=== PATIENT | female | born 1980 | race Caucasian/White ===

== ENCOUNTER 2016-12-10 17:32 | Emergency (ER) | payer MEDICARE ==
[~2016-12-10 17:32] MED LIST: ACETAMINOPHEN W1 TA6 PO; AMLOPIDINE; CARBAMAZEPINE400 MG; COUMADIN10 MG; FLEXERIL10 MG PO; GABAPENTIN600 MG; LABETALOL100 MG; LEXAPRO 10MG10 MG; LYRICA100 MG PO; LYRICA75 MG PO; NORVASC 10MG10 MG; OMNICEF PO; PERCOCET 650 MG1 TAB PO; PLAQUENIL; TOPAMAX25 MG PO; TRANDATE 100MG100 MG PO; [UNRECOGNIZED DRUG - REMARK]
[2016-12-10] MEDS ORDERED: LEXAPRO20 M1 PO (17:38)
[2016-12-10] MEDS ORDERED: COUMADIN5 M1 PO (17:39)
[2016-12-10] MEDS ORDERED: SUNMARK ENTERI325 MG PO (17:39)
[2016-12-10] MEDS ORDERED: TRAMADOL 50 MG TAB (17:40)
[2016-12-10] MEDS ORDERED: NORCO 325 MG-51 TA1 PO (17:40)
[2016-12-10] MEDS ORDERED: KLONOPIN 1MG1 MG (17:40)
[2016-12-10] MEDS ORDERED: TIZANIDINE HYDRO2 M1 (17:41)
[2016-12-10] MEDS ORDERED: FIORICET1 CAP (17:41)
[2016-12-10 21:40] VITALS: BP 123/64
== END 2016-12-10 21:40 | disposition home or self-care (01) ==
LOC: ED 17:32
DX: R42 Dizziness and giddiness (principal); R53.81 Other malaise; R53.1 Weakness; G43.909 Migraine, unspecified, not intractable, without status migrainosus; E86.0 Dehydration; R55 Syncope and collapse; I10 Essential (primary) hypertension; Z86.73 Personal history of transient ischemic attack (TIA), and cerebral infarction without residual deficits; Z91.81 History of falling; Z79.01 Long term (current) use of anticoagulants; Z79.82 Long term (current) use of aspirin; F17.210 Nicotine dependence, cigarettes, uncomplicated
CPT/HCPCS: J1885; J3360; J7030

== ENCOUNTER 2017-12-31 11:00 | Outpatient (RCR) | payer MEDICARE ==
[~2017-12-31 11:00] MED LIST changes: +COUMADIN5 M1 PO; +FIORICET1 CAP; +KLONOPIN 1MG1 MG; +LEXAPRO20 M1 PO; +NORCO 325 MG-51 TA1 PO; +SUNMARK ENTERI325 MG PO; +TIZANIDINE HYDRO2 M1; +TRAMADOL 50 MG TAB
== END 2017-12-31 11:30 | disposition home or self-care (01) ==
LOC: OT 11:00
DX: R53.1 Weakness (principal)

== ENCOUNTER 2017-12-31 11:30 | Outpatient (RCR) | payer MEDICARE | END 2017-12-31 12:00 | disposition home or self-care (01) | LOC: PT 11:30 | DX: G43.409 Hemiplegic migraine, not intractable, without status migrainosus (principal) | CPT/HCPCS: G8978-GP; G8979-GP ==

== ENCOUNTER → 2018-07-10 | Outpatient (CLI) | payer MEDICARE ==
[~2018-07-10] VITALS: Ht 165.1 cm; Wt 57.5 kg
[2018-07-10 12:39] VITALS: BP 140/90
[2018-07-10 14:20] VITALS: BP 131/87
== END ==
LOC: AMSURD 12:07
DX: R10.9 Unspecified abdominal pain (principal); K59.00 Constipation, unspecified

== ENCOUNTER 2018-11-26 21:03 | Emergency (ER) | payer MEDICARE ==
[~2018-11-26] VITALS: Ht 167.6 cm; Wt 63.2 kg
[~2018-11-26 21:03] MED LIST changes: -CBD OIL PO; -COUMADIN 1010 MG/TAB PO; -FIORINAL 50-321 EACH PO; -GOOD NEIGH1200 MG/15 PO; -KLONOPIN 0.5MG0.5 MG PO; -LYRICA225 MG PO; -MEDI-FIRST ASP325 MG PO; -MIRALAX17 GM PO; -PLAQUENIL200 MG PO; -PROAIR HFA0.09 MG/AC IH; -TOPAMAX100 MG PO; -TYLENOL 8 HOUR650 M1 PO; -ULTRAM50 M1 PO; -WARFARIN SODIUM5 MG PO; -ZANAFLEX4 M1 PO; -ZOFRAN ODT4 MG PO
[2018-11-26 22:05] LABS: ALBUMIN 3.7 g/dL (3.5-5.0); CALCIUM 8.5 mg/dL (8.4-10.2); TOTAL BILIRUBIN 0.4 mg/dL (0.2-1.3); TOTAL PROTEIN 6.8 g/dL (6.3-8.2)
[2018-11-26 22:08] LABS: BASO # 0.1 (0.02-0.10); EOS # 0.2 (0.04-0.40); EOS % 1.9 % (1.0-5.0); HEMATOCRIT 40.2 % (37.0-47.0); HEMOGLOBIN 13.1 g/dL (12.5-16.0); MEAN CELL VOLUME 82 fl (78-100); MEAN CORPUSCULAR HEMOGLOBIN 27 pg (27-31); MEAN CORPUSCULAR HGB CONC 33 g/dL (33-37); MEAN PLATELET VOLUME 11.2 fl (7.4-10.4); MONO # 0.8 (0.20-0.80); NEU # 4.8 (1.40-6.50); PLATELET COUNT 262 K/mm3 (130-400); WHITE BLOOD COUNT 7.8 K/mm3 (4.8-10.8)
[2018-11-26 22:13] LABS: RED CELL DISTRIBUTION WIDTH 20.9 % (11.5-14.5)
[2018-11-26 22:15] LABS: POTASSIUM 2.9 mmol/L (3.6-5.0)
[2018-11-26 23:08] LABS: PH-URINE 7.5 (5.0 - 8.0); URINE APPEARANCE HAZY; URINE BILIRUBIN NEGATIVE (NEGATIVE); URINE BLOOD TRACE (NEGATIVE); URINE COLOR YELLOW; URINE GLUCOSE NEGATIVE (NEGATIVE); URINE KETONE NEGATIVE (NEGATIVE); URINE LEUKOCYTE ESTERASE NEGATIVE (NEGATIVE); URINE MUCUS PRESENT (NOT PRESENT); URINE NITRATE NEGATIVE (NEGATIVE); URINE PROTEIN(semi-quant) TRACE mg/dL (NEGATIVE); URINE UROBILINOGEN NORMAL (NORMAL); URINE WBC 0-1 /hpf (0-3)
[2018-11-27 00:28] VITALS: BP 150/69
[2018-11-27] MEDS ORDERED: MEDI-FIRST ASP325 MG PO (01:06)
[2018-11-27] MEDS ORDERED: TYLENOL 8 HOUR650 M1 PO (01:06)
[2018-11-27] MEDS ORDERED: PROAIR HFA0.09 MG/AC IH (01:06)
[2018-11-27] MEDS ORDERED: FIORINAL 50-321 EACH PO (01:07)
[2018-11-27] MEDS ORDERED: KLONOPIN 0.5MG0.5 MG PO (01:07)
[2018-11-27] MEDS ORDERED: ZOFRAN ODT4 MG PO (01:08)
[2018-11-27] MEDS ORDERED: GOOD NEIGH1200 MG/15 PO (01:08)
[2018-11-27] MEDS ORDERED: LEXAPRO20 M1 PO (01:08)
[2018-11-27] MEDS ORDERED: PLAQUENIL200 MG PO (01:08)
[2018-11-27] MEDS ORDERED: LYRICA225 MG PO (01:09)
[2018-11-27] MEDS ORDERED: ZANAFLEX4 M1 PO (01:09)
[2018-11-27] MEDS ORDERED: MIRALAX17 GM PO (01:09)
[2018-11-27] MEDS ORDERED: TOPAMAX100 MG PO (01:10)
[2018-11-27] MEDS ORDERED: ULTRAM50 M1 PO (01:11)
[2018-11-27] MEDS ORDERED: CBD OIL PO (01:12)
[2018-11-27] MEDS ORDERED: WARFARIN SODIUM5 MG PO (01:13)
[2018-11-27] MEDS ORDERED: COUMADIN 1010 MG/TAB PO (01:13)
== END 2018-11-27 00:28 | disposition home or self-care (01) ==
LOC: ED 21:03
PROVIDERS: Nurse Practitioner Family
DX: G43.909 Migraine, unspecified, not intractable, without status migrainosus (principal); E87.6 Hypokalemia; I10 Essential (primary) hypertension; M32.11 Endocarditis in systemic lupus erythematosus; F41.9 Anxiety disorder, unspecified; D68.61 Antiphospholipid syndrome; M06.9 Rheumatoid arthritis, unspecified; F17.210 Nicotine dependence, cigarettes, uncomplicated; Z86.73 Personal history of transient ischemic attack (TIA), and cerebral infarction without residual deficits
CPT/HCPCS: J1200; J1885; J2405; J7030

== ENCOUNTER → 2018-11-26 | Outpatient (CLI) | payer MEDICARE ==
[2018-07-10 14:20] VITALS: BP 131/87
[~2018-11-26] MED LIST changes: +CBD OIL PO; +COUMADIN 1010 MG/TAB PO; +FIORINAL 50-321 EACH PO; +GOOD NEIGH1200 MG/15 PO; +KLONOPIN 0.5MG0.5 MG PO; +LYRICA225 MG PO; +MEDI-FIRST ASP325 MG PO; +MIRALAX17 GM PO; +PLAQUENIL200 MG PO; +PROAIR HFA0.09 MG/AC IH; +TOPAMAX100 MG PO; +TYLENOL 8 HOUR650 M1 PO; +ULTRAM50 M1 PO; +WARFARIN SODIUM5 MG PO; +ZANAFLEX4 M1 PO; +ZOFRAN ODT4 MG PO
[2018-11-26 09:44] LABS: CALCIUM 8.8 mg/dL (8.4-10.2)
[2018-11-26 10:32] LABS: POTASSIUM 2.7 mmol/L (3.6-5.0)
== END ==
LOC: LAB 09:24
PROVIDERS: Family Medicine
DX: E87.6 Hypokalemia (principal)

== ENCOUNTER → 2018-11-27 | Outpatient (CLI) | payer MEDICARE ==
[~2018-11-27] MED LIST changes: +CBD OIL PO; +COUMADIN 1010 MG/TAB PO; +FIORINAL 50-321 EACH PO; +GOOD NEIGH1200 MG/15 PO; +KLONOPIN 0.5MG0.5 MG PO; +LYRICA225 MG PO; +MEDI-FIRST ASP325 MG PO; +MIRALAX17 GM PO; +PLAQUENIL200 MG PO; +PROAIR HFA0.09 MG/AC IH; +TOPAMAX100 MG PO; +TYLENOL 8 HOUR650 M1 PO; +ULTRAM50 M1 PO; +WARFARIN SODIUM5 MG PO; +ZANAFLEX4 M1 PO; +ZOFRAN ODT4 MG PO
[2018-11-27 00:28] VITALS: BP 150/69
[2018-11-27 12:32] LABS: CALCIUM 8.7 mg/dL (8.4-10.2); POTASSIUM 3.7 mmol/L (3.6-5.0)
== END ==
LOC: LAB 12:06
PROVIDERS: Family Medicine
DX: E87.6 Hypokalemia (principal)

== ENCOUNTER → 2018-11-30 | Outpatient (CLI) | payer MEDICARE ==
[2018-11-27 00:28] VITALS: BP 150/69
== END ==
LOC: VAS 17:23 → RAD 17:30
DX: I08.3 Combined rheumatic disorders of mitral, aortic and tricuspid valves (principal)

== ENCOUNTER 2019-06-21 17:58 | Emergency (ER) | payer MEDICARE ==
[2019-06-21] MEDS ORDERED: WARFARIN SOD5 MG PO (18:02)
[2019-06-21] MEDS ORDERED: LOSARTAN POTASS50 M1 PO (18:02)
[2019-06-21] MEDS ORDERED: DULOXETINE60 MG PO (18:02)
[2019-06-21] MEDS ORDERED: TOPIRAMATE100 MG PO (18:02)
[2019-06-21] MEDS ORDERED: PLAQUENIL 200M200 MG PO (18:02)
[2019-06-21 18:38] LABS: BASO # 0.1 (0.02-0.10); EOS # 0.2 (0.04-0.40); EOS % 2.6 % (1.0-5.0); HEMATOCRIT 40.2 % (37.0-47.0); HEMOGLOBIN 13.3 g/dL (12.5-16.0); LYMPH# 1.4 (1.50-4.00); MEAN CELL VOLUME 92 fl (78-100); MEAN CORPUSCULAR HEMOGLOBIN 30 pg (27-31); MEAN CORPUSCULAR HGB CONC 33 g/dL (33-37); MEAN PLATELET VOLUME 10.9 fl (7.4-10.4); MONO # 0.6 (0.20-0.80); NEU # 4.1 (1.40-6.50); PLATELET COUNT 229 K/mm3 (130-400); RED BLOOD COUNT 4.39 M/mm3 (4.10-5.30); WHITE BLOOD COUNT 6.3 K/mm3 (4.8-10.8)
[2019-06-21 18:45] LABS: RED CELL DISTRIBUTION WIDTH 18.7 % (11.5-14.5)
[2019-06-21 18:47] LABS: ALBUMIN 3.6 g/dL (3.5-5.0); POTASSIUM 3.7 mmol/L (3.5-5.1)
[2019-06-21 18:49] LABS: CALCIUM 8.3 mg/dL (8.3-10.5)
[2019-06-21 18:50] LABS: TOTAL PROTEIN 7.3 g/dL (6.4-8.3)
[2019-06-21 18:52] LABS: TOTAL BILIRUBIN 0.6 mg/dL (0.2-1.2)
[2019-06-21 19:28] LABS: PH-URINE 6.5 (5.0 - 8.0); URINE APPEARANCE HAZY; URINE BILIRUBIN NEGATIVE (NEGATIVE); URINE COLOR YELLOW; URINE GLUCOSE NEGATIVE (NEGATIVE); URINE KETONE NEGATIVE (NEGATIVE); URINE PROTEIN(semi-quant) TRACE mg/dL (NEGATIVE); URINE UROBILINOGEN NORMAL (NORMAL)
[2019-06-21 19:29] LABS: URINE BLOOD NEGATIVE (NEGATIVE); URINE LEUKOCYTE ESTERASE 1+ (NEGATIVE); URINE NITRATE POSITIVE (NEGATIVE); URINE WBC 16-30 /hpf (0-3)
[2019-06-21] MEDS ORDERED: MACROBID 100 M100 MG PO (19:43)
[2019-06-21 19:55] LABS: PROTHROMBIN TIME 18.4 SECONDS (9.0-12.0)
[2019-06-21 20:08] VITALS: BP 149/82
== END 2019-06-21 20:08 | disposition home or self-care (01) ==
LOC: ED 17:58
PROVIDERS: Nurse Practitioner Primary Care
DX: N39.0 Urinary tract infection, site not specified (principal); R56.9 Unspecified convulsions; I73.00 Raynaud's syndrome without gangrene; L93.0 Discoid lupus erythematosus; F17.210 Nicotine dependence, cigarettes, uncomplicated; Z79.01 Long term (current) use of anticoagulants; Z79.82 Long term (current) use of aspirin

== ENCOUNTER 2019-12-20 15:38 | Emergency (ER) | payer MEDICARE, MEDICAID ==
[~2019-12-20] VITALS: Ht 165.1 cm; Wt 56.4 kg
[~2019-12-20 15:38] MED LIST changes: +DULOXETINE60 MG PO; +LOSARTAN POTASS50 M1 PO; +MACROBID 100 M100 MG PO; +PLAQUENIL 200M200 MG PO; +TOPIRAMATE100 MG PO; +WARFARIN SOD5 MG PO
[2019-12-20 18:00] VITALS: BP 127/77
== END 2019-12-20 18:00 | disposition home or self-care (01) ==
LOC: ED 15:38
DX: G43.909 Migraine, unspecified, not intractable, without status migrainosus (principal); I73.00 Raynaud's syndrome without gangrene; M32.9 Systemic lupus erythematosus, unspecified; F17.210 Nicotine dependence, cigarettes, uncomplicated; Z79.01 Long term (current) use of anticoagulants; Z79.82 Long term (current) use of aspirin; Z86.73 Personal history of transient ischemic attack (TIA), and cerebral infarction without residual deficits
CPT/HCPCS: J1200; J1885

== ENCOUNTER 2019-12-24 10:51 | Emergency (ER) | payer MEDICARE, MEDICAID ==
[2019-12-24 11:20] LABS: HEMATOCRIT 35.4 % (37.0-47.0); HEMOGLOBIN 11.2 g/dL (12.5-16.0); MEAN CELL VOLUME 94 fl (78-100); MEAN CORPUSCULAR HEMOGLOBIN 30 pg (27-31); MEAN CORPUSCULAR HGB CONC 32 g/dL (33-37); MEAN PLATELET VOLUME 10.2 fl (7.4-10.4); PLATELET COUNT 207 K/mm3 (130-400); RED BLOOD COUNT 3.75 M/mm3 (4.10-5.30); RED CELL DISTRIBUTION WIDTH 16.4 % (11.5-14.5); WHITE BLOOD COUNT 5.1 K/mm3 (4.8-10.8)
[2019-12-24 11:30] LABS: ALBUMIN 3.2 g/dL (3.5-5.0)
[2019-12-24 11:32] LABS: CALCIUM 7.8 mg/dL (8.3-10.5)
[2019-12-24 11:33] LABS: TOTAL PROTEIN 5.8 g/dL (6.4-8.3)
[2019-12-24 11:35] LABS: TOTAL BILIRUBIN 0.3 mg/dL (0.2-1.2)
[2019-12-24 11:37] LABS: LYMPHOCYTE 29 % (20-51); MONOCYTE 12 % (3-10); NEUTROPHILS 54 % (42-75); OVALOCYTES 1+
[2019-12-24 12:35] LABS: URINE APPEARANCE HAZY; URINE BILIRUBIN NEGATIVE (NEGATIVE); URINE BLOOD 250 ery/uL (NEGATIVE); URINE COLOR YELLOW; URINE GLUCOSE NEGATIVE (NEGATIVE); URINE KETONE NEGATIVE (NEGATIVE); URINE LEUKOCYTE ESTERASE 2+ (NEGATIVE); URINE NITRATE POSITIVE (NEGATIVE); URINE PROTEIN(semi-quant) 1+ mg/dL (NEGATIVE); URINE UROBILINOGEN NORMAL (NORMAL); URINE WBC >50 /hpf (0-3)
[2019-12-24] MEDS ORDERED: CEFDINIR300 MG PO (12:50)
[2019-12-24 13:18] VITALS: BP 147/75
== END 2019-12-24 13:06 | disposition home or self-care (01) ==
LOC: ED 10:51
PROVIDERS: Nurse Practitioner Primary Care
DX: R56.9 Unspecified convulsions (principal); F43.9 Reaction to severe stress, unspecified; E63.9 Nutritional deficiency, unspecified; I10 Essential (primary) hypertension; M32.9 Systemic lupus erythematosus, unspecified; F17.210 Nicotine dependence, cigarettes, uncomplicated; Z79.82 Long term (current) use of aspirin; Z79.01 Long term (current) use of anticoagulants
CPT/HCPCS: A4216; J0696; J2405; J3010; J7030

== ENCOUNTER 2020-06-30 15:06 | Emergency (ER) | payer MEDICARE ==
[~2020-06-30] VITALS: Ht 167.6 cm; Wt 63.2 kg
[~2020-06-30 15:06] MED LIST changes: +CEFDINIR300 MG PO
[2020-06-30 15:28] LABS: EOS # 0.1 (0.04-0.40); EOS % 1.7 % (1.0-5.0); HEMATOCRIT 37.3 % (37.0-47.0); HEMOGLOBIN 12.2 g/dL (12.5-16.0); LYMPH# 1.5 (1.50-4.00); MEAN CELL VOLUME 83 fl (78-100); MEAN CORPUSCULAR HEMOGLOBIN 27 pg (27-31); MEAN CORPUSCULAR HGB CONC 33 g/dL (33-37); MONO # 0.7 (0.20-0.80); NEU # 3.6 (1.40-6.50); PLATELET COUNT 245 K/mm3 (130-400); RED BLOOD COUNT 4.49 M/mm3 (4.10-5.30)
[2020-06-30 15:32] LABS: RED CELL DISTRIBUTION WIDTH 20.1 % (11.5-14.5)
[2020-06-30 15:36] LABS: ALBUMIN 3.6 g/dL (3.5-5.0); POTASSIUM 3.8 mmol/L (3.5-5.1)
[2020-06-30 15:37] LABS: CALCIUM 8.4 mg/dL (8.3-10.5)
[2020-06-30 15:39] LABS: TOTAL PROTEIN 6.5 g/dL (6.4-8.3)
[2020-06-30 15:40] LABS: TOTAL BILIRUBIN 0.7 mg/dL (0.2-1.2)
[2020-06-30 15:45] LABS: MAGNESIUM 1.53 mg/dL (1.60-2.60)
[2020-06-30 15:48] LABS: D-DIMER 0.18 mg/L FEU (0.15-0.50); PROTHROMBIN TIME 17.2 SECONDS (9.0-12.0)
[2020-06-30 16:19] LABS: URINE APPEARANCE CLEAR; URINE BILIRUBIN NEGATIVE (NEGATIVE); URINE BLOOD NEGATIVE (NEGATIVE); URINE COLOR YELLOW; URINE GLUCOSE NEGATIVE (NEGATIVE); URINE KETONE NEGATIVE (NEGATIVE); URINE LEUKOCYTE ESTERASE NEGATIVE (NEGATIVE); URINE NITRATE NEGATIVE (NEGATIVE); URINE PROTEIN(semi-quant) TRACE mg/dL (NEGATIVE); URINE UROBILINOGEN NORMAL (NORMAL)
[2020-06-30 16:27] LABS: ERYTHROCYTE SEDIMENTATION RATE 6 mm/hr (0-20)
[2020-06-30 20:38] VITALS: BP 136/84
== END 2020-06-30 20:54 | disposition home or self-care (01) ==
LOC: ED 15:06
PROVIDERS: Nurse Practitioner Primary Care
DX: R53.81 Other malaise (principal); M32.9 Systemic lupus erythematosus, unspecified; F17.200 Nicotine dependence, unspecified, uncomplicated; I10 Essential (primary) hypertension; Z86.73 Personal history of transient ischemic attack (TIA), and cerebral infarction without residual deficits; Z79.01 Long term (current) use of anticoagulants; Z79.82 Long term (current) use of aspirin
CPT/HCPCS: J2930; J7120

== ENCOUNTER → 2021-04-27 | Outpatient (CLI) | payer MEDICARE | LOC: RAD 13:30 → VAS 13:43 | DX: R93.1 Abnormal findings on diagnostic imaging of heart and coronary circulation (principal) ==

== ENCOUNTER → 2021-05-24 | Outpatient (CLI) | payer MEDICARE ==
[2021-05-24 15:14] LABS: BASO # 0.05 (0.02-0.10); EOS # 0.13 (0.04-0.40); EOS % 2.5 % (1.0-5.0); HEMATOCRIT 46.6 % (37.0-47.0); LYMPH# 1.25 (1.50-4.00); MEAN CELL VOLUME 87 fl (78-100); MEAN CORPUSCULAR HEMOGLOBIN 28 pg (27-31); MEAN CORPUSCULAR HGB CONC 32 g/dL (33-37); MONO # 0.67 (0.20-0.80); NEU # 3.16 (1.40-6.50); PLATELET COUNT 222 K/mm3 (130-400); RED BLOOD COUNT 5.33 M/mm3 (4.10-5.30); RED CELL DISTRIBUTION WIDTH 17.4 % (11.5-14.5); WHITE BLOOD COUNT 5.3 K/mm3 (4.8-10.8)
[2021-05-24 15:31] LABS: PROTHROMBIN TIME 12.8 SECONDS (9.0-12.0)
== END ==
LOC: LAB 15:00
PROVIDERS: Internal Medicine
DX: D68.61 Antiphospholipid syndrome (principal); K90.9 Intestinal malabsorption, unspecified; Z86.73 Personal history of transient ischemic attack (TIA), and cerebral infarction without residual deficits

== ENCOUNTER → 2021-05-29 | Outpatient (CLI) | payer MEDICARE ==
[2021-05-29 15:41] LABS: PROTHROMBIN TIME 14.5 SECONDS (9.0-12.0)
[2021-06-01 20:40] LABS: A/G RATIO (PEP) 1.02 (()); BETA GLOBULINS (PEP) 0.8 g/dL (0.7-1.2)
== END ==
LOC: LAB 15:05
PROVIDERS: Internal Medicine
DX: D68.61 Antiphospholipid syndrome (principal); E87.8 Other disorders of electrolyte and fluid balance, not elsewhere classified

== ENCOUNTER → 2021-06-05 | Outpatient (CLI) | payer MEDICARE ==
[2021-06-07 22:48] LABS: AFFIRM VAGINITIS PANEL RESULTS AMS
== END ==
LOC: LAB 13:56
PROVIDERS: Physician Assistant
DX: N89.8 Other specified noninflammatory disorders of vagina (principal)

== ENCOUNTER → 2021-06-07 | Outpatient (CLI) | payer MEDICARE | LOC: MAMMO 10:00 | DX: Z12.31 Encounter for screening mammogram for malignant neoplasm of breast (principal) ==

== ENCOUNTER → 2021-06-21 | Outpatient (CLI) | payer MEDICARE ==
[2021-06-21 13:56] LABS: PROTHROMBIN TIME 15.3 SECONDS (9.0-12.0)
== END ==
LOC: LAB 13:05
PROVIDERS: Internal Medicine
DX: D68.61 Antiphospholipid syndrome (principal)

== ENCOUNTER → 2021-09-27 | Outpatient (CLI) | payer MEDICARE ==
[2021-09-27 13:32] LABS: PROTHROMBIN TIME 10.6 SECONDS (9.0-12.0)
== END ==
LOC: LAB 13:01
PROVIDERS: Internal Medicine
DX: D68.61 Antiphospholipid syndrome (principal)

== ENCOUNTER → 2021-10-15 | Outpatient (CLI) | payer MEDICARE ==
[~2021-10-15] MED LIST changes: +ADULT LOW DOSE81 MG PO; +CHLORHEXIDINE118 ML; +COREG 6.256.25 MG/TA PO; +FIORICET 325 MG1 TAB PO; +HCTZ/TRIAMTEREN1 CA2 PO; +LAMICTAL 25MG T25 MG PO; +LIPITOR20 M2 PO; +LYRICA200 MG PO; +METRONIDAZOLE500 M1 PO; +PRISTIQ ER25 MG PO; +TRAMADOL 50 MG TAB PO
[2021-10-15 15:57] LABS: PROTHROMBIN TIME 21.8 SECONDS (9.0-12.0)
== END ==
LOC: LAB 15:33
PROVIDERS: Internal Medicine
DX: D68.61 Antiphospholipid syndrome (principal)

== ENCOUNTER 2021-10-16 14:18 | Emergency (ER) | payer MEDICARE ==
[~2021-10-16] VITALS: Wt 63.2 kg
[~2021-10-16 14:18] MED LIST changes: -ADULT LOW DOSE81 MG PO; -CHLORHEXIDINE118 ML; -COREG 6.256.25 MG/TA PO; -FIORICET 325 MG1 TAB PO; -HCTZ/TRIAMTEREN1 CA2 PO; -LAMICTAL 25MG T25 MG PO; -LIPITOR20 M2 PO; -LYRICA200 MG PO; -METRONIDAZOLE500 M1 PO; -PRISTIQ ER25 MG PO; -TRAMADOL 50 MG TAB PO
[2021-10-16 14:40] LABS: BASO # 0.04 K/mm3 (0.02-0.10); EOS % 2.1 % (1.0-5.0); HEMATOCRIT 43.8 % (37.0-47.0); HEMOGLOBIN 14.2 g/dL (12.5-16.0); LYMPH# 1.26 K/mm3 (1.50-4.00); MEAN CELL VOLUME 91 fl (78-100); MEAN CORPUSCULAR HEMOGLOBIN 29 pg (27-31); MEAN CORPUSCULAR HGB CONC 32 g/dL (33-37); MEAN PLATELET VOLUME 10.3 fl (7.4-10.4); MONO # 0.57 K/mm3 (0.20-0.80); NEU # 2.82 K/mm3 (1.40-6.50); PLATELET COUNT 264 K/mm3 (130-400); RED BLOOD COUNT 4.83 M/mm3 (4.10-5.30); RED CELL DISTRIBUTION WIDTH 16.5 % (11.5-14.5); WHITE BLOOD COUNT 4.8 K/mm3 (4.8-10.8)
[2021-10-16] MEDS ORDERED: ADULT LOW DOSE81 MG PO (14:46)
[2021-10-16] MEDS ORDERED: LIPITOR20 M2 PO (14:46)
[2021-10-16] MEDS ORDERED: COREG 6.256.25 MG/TA PO (14:47)
[2021-10-16] MEDS ORDERED: KLONOPIN 0.5MG0.5 MG PO (14:49)
[2021-10-16] MEDS ORDERED: LAMICTAL 25MG T25 MG PO (14:49)
[2021-10-16] MEDS ORDERED: METRONIDAZOLE500 M1 PO (14:51)
[2021-10-16] MEDS ORDERED: LYRICA200 MG PO (14:52)
[2021-10-16 14:53] LABS: ALBUMIN 3.5 g/dL (3.5-5.0); POTASSIUM 3.7 mmol/L (3.5-5.1); SODIUM 137 mmol/L (136-145)
[2021-10-16 14:54] LABS: CALCIUM 8.3 mg/dL (8.3-10.5); PROTHROMBIN TIME 20.2 SECONDS (9.0-12.0)
[2021-10-16 14:55] LABS: GLUCOSE 80 mg/dL (65-105)
[2021-10-16 14:56] LABS: TOTAL PROTEIN 6.4 g/dL (6.4-8.3)
[2021-10-16 14:57] LABS: CARBON DIOXIDE 24 mmol/L (22-29); TOTAL BILIRUBIN 0.6 mg/dL (0.2-1.2)
[2021-10-16 14:59] LABS: ALCOHOL IN-HOUSE < 10 mg/dL (<10)
[2021-10-16 15:01] LABS: AST-SGOT 18 U/L (5-34)
[2021-10-16 15:02] LABS: ALT/SGPT 11 U/L (0-55)
[2021-10-16] MEDS ORDERED: FIORICET 325 MG1 TAB PO (16:00)
[2021-10-16] MEDS ORDERED: PRISTIQ ER25 MG PO (16:01)
[2021-10-16] MEDS ORDERED: ZANAFLEX4 M1 PO (16:04)
[2021-10-16] MEDS ORDERED: WARFARIN SOD5 MG PO (16:05)
[2021-10-16] MEDS ORDERED: CHLORHEXIDINE118 ML (16:06)
[2021-10-16] MEDS ORDERED: TRAMADOL 50 MG TAB PO (16:07)
[2021-10-16] MEDS ORDERED: HCTZ/TRIAMTEREN1 CA2 PO (16:11)
[2021-10-16 16:13] LABS: URINE APPEARANCE CLEAR; URINE BILIRUBIN NEGATIVE (NEGATIVE); URINE BLOOD NEGATIVE (NEGATIVE); URINE COLOR YELLOW; URINE GLUCOSE NEGATIVE (NEGATIVE); URINE KETONE NEGATIVE (NEGATIVE); URINE LEUKOCYTE ESTERASE NEGATIVE (NEGATIVE); URINE NITRATE NEGATIVE (NEGATIVE); URINE PROTEIN(semi-quant) 1+ mg/dL (NEGATIVE); URINE UROBILINOGEN NORMAL (NORMAL); URINE WBC 0-1 /hpf (0-3)
[2021-10-16 20:03] VITALS: BP 149/95
== END 2021-10-16 20:03 | disposition home or self-care (01) ==
LOC: ED 14:18
PROVIDERS: Nurse Practitioner
DX: R25.8 Other abnormal involuntary movements (principal); F41.9 Anxiety disorder, unspecified; M79.7 Fibromyalgia; G43.909 Migraine, unspecified, not intractable, without status migrainosus; F32.A Depression, unspecified; G40.909 Epilepsy, unspecified, not intractable, without status epilepticus; Z86.73 Personal history of transient ischemic attack (TIA), and cerebral infarction without residual deficits; Z79.899 Other long term (current) drug therapy; Z79.01 Long term (current) use of anticoagulants

== ENCOUNTER 2022-11-28 18:25 | Emergency (ER) | payer MEDICARE ==
[~2022-11-28] VITALS: Wt 51.3 kg
[2022-11-28 18:55] LABS: BASO # 0.04 K/mm3 (0.02-0.10); EOS % 2.4 % (1.0-5.0); HEMATOCRIT 45.4 % (37.0-47.0); HEMOGLOBIN 15.5 g/dL (12.5-16.0); LYMPH# 1.79 K/mm3 (1.50-4.00); MEAN CELL VOLUME 89 fl (78-100); MEAN CORPUSCULAR HEMOGLOBIN 30 pg (27-31); MEAN CORPUSCULAR HGB CONC 34 g/dL (33-37); MEAN PLATELET VOLUME 10.5 fl (7.4-10.4); MONO # 0.92 K/mm3 (0.20-0.80); NEU # 5.47 K/mm3 (1.40-6.50); PLATELET COUNT 271 K/mm3 (130-400); RED BLOOD COUNT 5.12 M/mm3 (4.10-5.30); RED CELL DISTRIBUTION WIDTH 17.5 % (11.5-14.5); WHITE BLOOD COUNT 8.4 K/mm3 (4.8-10.8)
[2022-11-28 19:01] LABS: ALBUMIN 3.7 g/dL (3.5-5.0); POTASSIUM 3.1 mmol/L (3.5-5.1)
[2022-11-28 19:03] LABS: CALCIUM 9.1 mg/dL (8.3-10.5)
[2022-11-28] MEDS ORDERED: MEDI-FIRST ASP325 MG PO (19:04)
[2022-11-28 19:06] LABS: TOTAL BILIRUBIN 0.7 mg/dL (0.2-1.2)
[2022-11-28 19:27] LABS: TROPONIN-I 2.14 ng/mL (<0.030)
[2022-11-28 19:49] LABS: PH-URINE 5.5 (5.0 - 8.0); URINE APPEARANCE CLEAR; URINE BILIRUBIN NEGATIVE (NEGATIVE); URINE BLOOD NEGATIVE (NEGATIVE); URINE COLOR LIGHT YELLOW; URINE GLUCOSE NEGATIVE (NEGATIVE); URINE KETONE NEGATIVE (NEGATIVE); URINE LEUKOCYTE ESTERASE NEGATIVE (NEGATIVE); URINE NITRATE NEGATIVE (NEGATIVE); URINE PROTEIN(semi-quant) TRACE (NEGATIVE); URINE UROBILINOGEN NORMAL (NORMAL)
[2022-11-28 19:50] LABS: URINE WBC 0-1 /hpf (0-3)
[2022-11-28 21:30] VITALS: BP 173/76
== END 2022-11-28 21:30 | disposition short-term general hospital (02) ==
LOC: ED 18:25
PROVIDERS: Family Medicine
DX: I21.4 Non-ST elevation (NSTEMI) myocardial infarction (principal); I50.810 Right heart failure, unspecified; F17.200 Nicotine dependence, unspecified, uncomplicated; Z28.310 Unvaccinated for COVID-19
CPT/HCPCS: J7030; Q9967

== ENCOUNTER → 2022-11-28 | Outpatient (CLI) | payer MEDICARE ==
[~2022-11-28] MED LIST changes: +ADULT LOW DOSE81 MG PO; +CHLORHEXIDINE118 ML; +COREG 6.256.25 MG/TA PO; +FIORICET 325 MG1 TAB PO; +HCTZ/TRIAMTEREN1 CA2 PO; +LAMICTAL 25MG T25 MG PO; +LIPITOR20 M2 PO; +LYRICA200 MG PO; +METRONIDAZOLE500 M1 PO; +PRISTIQ ER25 MG PO; +TRAMADOL 50 MG TAB PO
[2022-11-28 17:14] LABS: BASO # 0.03 K/mm3 (0.02-0.10); EOS # 0.16 K/mm3 (0.04-0.40); EOS % 2.2 % (1.0-5.0); HEMATOCRIT 45.3 % (37.0-47.0); HEMOGLOBIN 15.2 g/dL (12.5-16.0); LYMPH# 1.51 K/mm3 (1.50-4.00); MEAN CELL VOLUME 90 fl (78-100); MEAN CORPUSCULAR HEMOGLOBIN 30 pg (27-31); MEAN CORPUSCULAR HGB CONC 34 g/dL (33-37); MEAN PLATELET VOLUME 10.3 fl (7.4-10.4); MONO # 0.78 K/mm3 (0.20-0.80); NEU # 4.78 K/mm3 (1.40-6.50); PLATELET COUNT 271 K/mm3 (130-400); RED BLOOD COUNT 5.04 M/mm3 (4.10-5.30); RED CELL DISTRIBUTION WIDTH 17.6 % (11.5-14.5); WHITE BLOOD COUNT 7.3 K/mm3 (4.8-10.8)
[2022-11-28 17:24] LABS: ALBUMIN 3.7 g/dL (3.5-5.0); POTASSIUM 3.1 mmol/L (3.5-5.1)
[2022-11-28 17:25] LABS: CALCIUM 9.1 mg/dL (8.3-10.5)
[2022-11-28 17:28] LABS: TOTAL BILIRUBIN 0.6 mg/dL (0.2-1.2)
[2022-11-28 18:03] LABS: TROPONIN-I 2.291 ng/mL (<0.030)
[2022-11-28 18:25] LABS: ERYTHROCYTE SEDIMENTATION RATE 17 mm/hr (0-20)
== END ==
LOC: LAB 15:43
PROVIDERS: Nurse Practitioner
DX: M25.512 Pain in left shoulder (principal)

== ENCOUNTER → 2023-07-21 | Outpatient (CLI) | payer MEDICARE ==
[2023-07-21 10:35] LABS: BASO # 0.04 K/mm3 (0.02-0.10); EOS # 0.17 K/mm3 (0.04-0.40); EOS % 2.8 % (1.0-5.0); HEMATOCRIT 47.5 % (37.0-47.0); HEMOGLOBIN 15.7 g/dL (12.5-16.0); LYMPH# 1.81 K/mm3 (1.50-4.00); MEAN CELL VOLUME 94 fl (78-100); MEAN CORPUSCULAR HEMOGLOBIN 31 pg (27-31); MEAN CORPUSCULAR HGB CONC 33 g/dL (33-37); MEAN PLATELET VOLUME 9.7 fl (7.4-10.4); NEU # 3.54 K/mm3 (1.40-6.50); PLATELET COUNT 228 K/mm3 (130-400); RED BLOOD COUNT 5.07 M/mm3 (4.10-5.30); RED CELL DISTRIBUTION WIDTH 14.5 % (11.5-14.5); WHITE BLOOD COUNT 6.2 K/mm3 (4.8-10.8)
[2023-07-21 10:41] LABS: POTASSIUM 3.8 mmol/L (3.5-5.1); SODIUM 139 mmol/L (136-145)
[2023-07-21 10:42] LABS: CALCIUM 9.1 mg/dL (8.3-10.5)
[2023-07-21 10:43] LABS: TOTAL PROTEIN 7.2 g/dL (6.4-8.3)
[2023-07-21 10:44] LABS: GLUCOSE 85 mg/dL (65-105)
[2023-07-21 10:45] LABS: CARBON DIOXIDE 27 mmol/L (22-29); TOTAL BILIRUBIN 0.6 mg/dL (0.2-1.2)
[2023-07-21 10:48] LABS: PROTHROMBIN TIME 16.8 SECONDS (9.0-12.0)
[2023-07-21 10:49] LABS: AST-SGOT 26 U/L (5-34)
[2023-07-21 10:50] LABS: ALT/SGPT 15 U/L (0-55)
[2023-07-21 12:05] LABS: ERYTHROCYTE SEDIMENTATION RATE 1 mm/hr (0-20)
== END ==
LOC: LAB 10:12
PROVIDERS: Internal Medicine
DX: Z12.39 Encounter for other screening for malignant neoplasm of breast (principal); Z11.4 Encounter for screening for human immunodeficiency virus [HIV]; I10 Essential (primary) hypertension; D68.61 Antiphospholipid syndrome; I25.10 Atherosclerotic heart disease of native coronary artery without angina pectoris; M79.7 Fibromyalgia; G43.909 Migraine, unspecified, not intractable, without status migrainosus; F44.5 Conversion disorder with seizures or convulsions; M06.9 Rheumatoid arthritis, unspecified; M32.19 Other organ or system involvement in systemic lupus erythematosus; I25.42 Coronary artery dissection; E55.9 Vitamin D deficiency, unspecified; T38.0X5A Adverse effect of glucocorticoids and synthetic analogues, initial encounter